=== PATIENT | female | born 1955 | race Caucasian/White ===

== ENCOUNTER 2017-04-12 08:10 | Observation (INO) | payer BC ==
[2017-04-12 09:22] LABS: ADD MAN DIFF? NO
[2017-04-12 09:33] LABS: ALANINE AMINOTRANSFERASE 39 IU/L (13-69); ALBUMIN 4.4 g/dl (3.3-4.9); ALBUMIN/GLOBULIN RATIO 1.51; ALKALINE PHOSPHATASE 85 IU/L (42-121); ANION GAP 17 (8-16); ASPARTATE AMINO TRANSFERASE 39 IU/L (15-46); BASOPHILS % 0.3 % (0.0-2.0); BILIRUBIN,INDIRECT 0.3 mg/dl (0-1.1); BILIRUBIN,TOTAL 0.3 mg/dl (0.2-1.3); CARBON DIOXIDE 23 mmol/L (21-31); CHLORIDE 105 mmol/L (97-110); CHOL/HDL RATIO 4.3 RATIO; CHOLESTEROL 127 mg/dl (100-200); EOSINOPHILS % 1.1 % (0.0-7.0); GLUCOSE 107 mg/dl (70-220); HDL CHOLESTEROL 29 mg/dl (35-98); HEMATOCRIT 40.1 % (37.0-47.0); HEMOGLOBIN 13.3 g/dl (12.0-16.0); LDL CHOLESTEROL,CALCULATED 69 mg/dl; LYMPHOCYTES # 0.9 10^3/ul (0.8-2.9); LYMPHOCYTES % 26.3 % (15.0-51.0); MEAN CORPUSCULAR HEMOGLOBIN 32.5 pg (29.0-33.0); MEAN CORPUSCULAR HGB CONC 33.2 g/dl (32.0-37.0); MEAN PLATELET VOLUME 9.7 fl (7.4-10.4); MONOCYTE # 0.3 10^3/ul (0.3-0.9); MONOCYTES % 7.8 % (0.0-11.0); NEUTROPHIL # 2.3 10^3/ul (1.6-7.5); NEUTROPHILS % 64.2 % (39.0-77.0); PLATELET COUNT 140 10^3/UL (140-415); RED BLOOD COUNT 4.09 10^6/ul (4.20-5.40); RED CELL DISTRIBUTION WIDTH 13.6 % (11.5-14.5); TOTAL PROTEIN 7.3 g/dl (6.1-8.1); TRIGLYCERIDES 147 mg/dl (0-149)
[2017-04-12 09:39] LABS: INR 0.93; PROTIME 12.6 Sec (11.9-14.9)
[2017-04-12 09:40] LABS: BLOOD UREA NITROGEN 18 mg/dl (7-20); CALCIUM 8.9 mg/dl (8.4-10.2); CREATININE 1.08 mg/dl (0.44-1.00); PARTIAL THROMBOPLASTIN TIME 27.9 Sec (25.0-35.0); POTASSIUM 4.4 mmol/L (3.5-5.1); SODIUM 141 mmol/L (135-144)
[2017-04-12 09:51] LABS: HOLD TRANSMISSIONS 1
[2017-04-12 09:54] LABS: WHITE BLOOD COUNT 3.6 10^3/ul (4.8-10.8)
[2017-04-12] MEDS ORDERED: DIPHENHYDRAMINE 50 MG CAP PO (10:00)
[2017-04-12] MEDS ORDERED: DIAZEPAM 5 MG TAB PO (10:00)
[2017-04-12] MEDS ORDERED: FAMOTIDINE 20 MG TAB PO (10:00)
[2017-04-12] MEDS: SOD CHLORIDE 0.45% 1,000 ML IV (10:00)
[2017-04-12] MEDS ORDERED: HEPARIN 1000 UNITS/ML 10 ML INJ (10:43)
[2017-04-12] MEDS ORDERED: FENTAnyl 50 MCG/ML VIAL (10:43)
[2017-04-12] MEDS ORDERED: MIDAZOLAM 1 MG/ML 2 ML INJ (10:43)
[2017-04-12] MEDS ORDERED: LIDOCAINE 1% (MDV) 20 ML INJ (10:43)
[2017-04-12] MEDS ORDERED: IODIXANOL LOCM 100 ML BTL ×2 (10:43→12:03)
[2017-04-12] MEDS ORDERED: NITROGLYCERIN (IC) 100 MCG/ML INJ ×2 (10:44→11:26)
[2017-04-12] MEDS ORDERED: VERAPAMIL 5 MG INJ (10:44)
[2017-04-12] MEDS ORDERED: IOHEXOL 350MG/ML 50 ML BTL (11:31)
[2017-04-12] MEDS ORDERED: ASPIRIN 325 MG TAB (11:35)
[2017-04-12] MEDS ORDERED: TICAGRELOR 90 MG TABLET (11:35)
[2017-04-12] MEDS ORDERED: ADENOSINE 30 ML (11:47)
[2017-04-12] MEDS ORDERED: AL HYDROX/MG HYDROX/SIMETH 30 ML CUP PO (12:30)
[2017-04-12] MEDS ORDERED: OXYCODONE/ACETAMINOPHEN (5/325) TAB PO (12:30)
[2017-04-12] MEDS ORDERED: ONDANSETRON 4 MG INJ IV (12:30)
[2017-04-12] MEDS ORDERED: ACETAMINOPHEN 325 MG TAB PO (12:30)
[2017-04-12] MEDS ORDERED: morphine 2 MG INJ IV (12:30)
[2017-04-12] MEDS: SOD CHLORIDE 0.9% 1,000 ML IV (12:38)
[2017-04-12] MEDS ORDERED: ALBUTEROL/IPRATROPIUM (NEB) 3 ML AMP HHN (21:00)
[2017-04-12] MEDS: ATORVASTATIN 20 MG TAB PO (21:07)
[2017-04-12] MEDS: TICAGRELOR 90 MG TABLET PO (21:07)
[2017-04-12] MEDS: ALBUTEROL/IPRATROPIUM (NEB) 3 ML AMP HHN (22:30)
[2017-04-12] MEDS: ZOLPIDEM 5 MG TAB PO (22:42)
[2017-04-13] MEDS: LEVOTHYROXINE 125 MCG TAB PO (06:21)
[2017-04-13 06:37] LABS: ADD MAN DIFF? NO
[2017-04-13 06:45] LABS: EOSINOPHILS % 1.6 % (0.0-7.0); HEMATOCRIT 34.7 % (37.0-47.0); HEMOGLOBIN 11.4 g/dl (12.0-16.0); LYMPHOCYTES # 0.9 10^3/ul (0.8-2.9); LYMPHOCYTES % 35.2 % (15.0-51.0); MEAN CORPUSCULAR HEMOGLOBIN 32.7 pg (29.0-33.0); MEAN CORPUSCULAR HGB CONC 32.9 g/dl (32.0-37.0); MEAN CORPUSCULAR VOLUME 99.4 fl (82.0-101.0); MEAN PLATELET VOLUME 9.9 fl (7.4-10.4); MONOCYTE # 0.2 10^3/ul (0.3-0.9); NEUTROPHIL # 1.4 10^3/ul (1.6-7.5); NEUTROPHILS % 54.8 % (39.0-77.0); PLATELET COUNT 106 10^3/UL (140-415); RED BLOOD COUNT 3.49 10^6/ul (4.20-5.40); RED CELL DISTRIBUTION WIDTH 13.2 % (11.5-14.5)
[2017-04-13 06:45] LABS: WHITE BLOOD COUNT 2.5 10^3/ul (4.8-10.8)
[2017-04-13 07:16] LABS: ANION GAP 11 (8-16); BLOOD UREA NITROGEN 12 mg/dl (7-20); CALCIUM 8.2 mg/dl (8.4-10.2); CARBON DIOXIDE 22 mmol/L (21-31); CHLORIDE 111 mmol/L (97-110); CREATININE 0.85 mg/dl (0.44-1.00); GLUCOSE 108 mg/dl (70-220); POTASSIUM 3.3 mmol/L (3.5-5.1); SODIUM 141 mmol/L (135-144)
[2017-04-13] MEDS: ASPIRIN (EC) 81 MG TAB PO (09:21)
[2017-04-13] MEDS: TICAGRELOR 90 MG TABLET PO (09:52)
[2017-04-13] MEDS: SOD CHLORIDE 0.45% 1,000 ML IV (10:00)
[2017-04-13] MEDS: POTASSIUM CHLORIDE 20 MEQ POWDER FOR ORAL SOLN PO (12:20)
== END 2017-04-13 13:30 | disposition home or self-care (01) ==
LOC: SDS 08:10 → ICU 12:03
DX: I25.10 Atherosclerotic heart disease of native coronary artery without angina pectoris (principal); E03.9 Hypothyroidism, unspecified; E78.5 Hyperlipidemia, unspecified
CPT/HCPCS: 71045; 80048; 80053; 80061; 85025; 85610; 85730; 92928; 92941; 93005; 93458; 93571; 94664